=== PATIENT | female | born 1985 | race Two or more races ===

== ENCOUNTER 2024-03-29 02:19 | Emergency (ER) | payer OTHER ==
[~2024-03-29] VITALS: Ht 175.3 cm; Wt 83.9 kg
[2024-03-29 03:23] VITALS: BP 102/74; TEMP 98.5; O2SAT 98
== END 2024-03-29 05:30 ==
LOC: ER 02:26
DX: Z00.00 Encounter for general adult medical examination without abnormal findings (principal)